=== PATIENT | male | born 1955 | race Caucasian/White ===

== ENCOUNTER → 2016-09-26 | Outpatient (CLI) | payer BC, SELFPAY ==
--- NOTE | 2016-09-27 | US ---
PROCEDURE: Venous,Lower Extremity RT CLINICAL HISTORY and INDICATION: Right leg pain COMPARISON: None. TECHNIQUE: Vega scale imaging with duplex interrogation of the right lower extremity venous system was performed and multiple static images were obtained. FINDINGS: Utilizing compression and augmentation, there is no deep venous thrombus in the common femoral, superficial femoral or popliteal veins. The posterior tibial and deep peroneal veins are patent and compressible. . The greater saphenous vein at the saphenofemoral junction is patent and compressible. There is no visualization of any subcutaneous fluid collections. There is a Avendaño's cyst in the right popliteal fossa measuring 3.3 x 1.1 x 0.4 cm There is no evidence of reactive or pathological lymphadenopathy in the evaluated right lower extremity. IMPRESSION: No deep venous thrombosis of the right lower extremity. There is a Avendaño's cyst in the right popliteal fossa measuring 3.3 x 1.1 x 0.4 cm Electronically signed by: Bunny Schaeffer MD 09/26/2016 11:58 PM CDT Workstation: [id number]
== END | disposition home or self-care (01) ==
LOC: US 15:00
PROVIDERS: ATTEND Nurse Practitioner Acute Care
DX: M79.604 Pain in right leg (principal)